=== PATIENT | male | born 1945 | race Caucasian/White ===

== ENCOUNTER 2017-02-09 20:23 | Emergency (ER) | payer MEDICARE, OTHER ==
[~2017-02-09] VITALS: Ht 172.7 cm; Wt 97.5 kg
[2017-02-09 20:26] VITALS: Ht 172.7 cm; Wt 97.5 kg
[2017-02-09] MEDS ORDERED: SODIUM CHLORIDE 0.9% 1L BAG IV* STA (22:28)
[2017-02-09] MEDS ORDERED: PIPER-TAZO 3.375 GM IV (PMX) 100 ML IVPB STA (22:28)
[2017-02-09] MEDS ORDERED: morphine 4 MG/ML VIAL IV STA (22:55)
[2017-02-09 23:13] LABS: ADD SCAN DIFF NO
[2017-02-09 23:18] LABS: ABNORMAL IP MESSAGE 1; HEMATOCRIT 39.8 % (42.0-52.0); HEMOGLOBIN 13.9 g/dl (14.0-18.0); MEAN CORPUSCULAR HEMOGLOBIN 30.4 pg (29.0-33.0); MEAN CORPUSCULAR HGB CONC 34.9 g/dl (32.0-37.0); MEAN CORPUSCULAR VOLUME 87.1 fl (82.0-101.0); MEAN PLATELET VOLUME 10.3 fl (7.4-10.4); PLATELET COUNT 120 10^3/UL (140-415); RED BLOOD COUNT 4.57 10^6/ul (4.70-6.10); WHITE BLOOD COUNT 2.4 10^3/ul (4.8-10.8)
[2017-02-09 23:36] LABS: INR 1.28; PROTIME 16.1 Sec (12.2-14.2); PT RATIO 1.3
[2017-02-09 23:37] LABS: ALBUMIN 4.5 g/dl (3.3-4.9); ALBUMIN/GLOBULIN RATIO 1.73; BILIRUBIN,INDIRECT 0.7 mg/dl (0-1.1); BILIRUBIN,TOTAL 0.7 mg/dl (0.2-1.3); CREATININE 1.22 mg/dl (0.61-1.24); PARTIAL THROMBOPLASTIN TIME 37.6 Sec (25.0-35.0); TOTAL PROTEIN 7.1 g/dl (6.1-8.1)
[2017-02-09] MEDS ORDERED: SIMV40TA2 PO (23:42)
[2017-02-09] MEDS ORDERED: IBUP200C PO (23:42)
[2017-02-09] MEDS ORDERED: LOSA1TAB9 PO (23:42)
[2017-02-09] MEDS ORDERED: NAPR220C2 PO (23:42)
[2017-02-09] MEDS ORDERED: SYN112 PO (23:42)
[2017-02-09] MEDS ORDERED: MULT-542 PO (23:42)
[2017-02-09] MEDS ORDERED: MTF1000T PO (23:42)
[2017-02-09 23:43] LABS: POTASSIUM 2.8 mmol/L (3.5-5.1)
[2017-02-09 23:48] LABS: TROPONIN-I 0.018 ng/ml (0.00-0.12)
[2017-02-10] MEDS ORDERED: POTASSIUM CHLORIDE (SR) 20 MEQ TAB PO STA
[2017-02-10] MEDS ORDERED: POTASSIUM CHLORIDE 10 MEQ in SOD CHLORIDE 0.9% 1,000 ML IV ONE ×2
[2017-02-10 00:50] LABS: LYMPHOCYTES # 0.2 10^3/ul (0.8-2.9); MONOCYTE # 0.4 10^3/ul (0.3-0.9); NEUTROPHIL # 0.4 10^3/ul (1.6-7.5); PLATELET ESTIMATE PLT APPEAR DECREASED; POLYCHROMASIA FEW; TEAR DROP CELLS FEW
--- NOTE | 2017-02-10 01:22 | RADRPT ---
PROCEDURE: XR Chest. CLINICAL INDICATION: Sepsis. TECHNIQUE: AP Portable chest. COMPARISON: No pertinent prior examinations were submitted for comparison. FINDINGS: There is mild cardiomegaly. The lungs are clear. The osseous structures are unremarkable. IMPRESSION: No acute findings. RPTAT: HIKT .Marco Jimenez MD, Date Time Electronically viewed and signed by .Marco Jimenez MD, on 02/10/2017 01:21 .T/
--- NOTE | 2017-02-10 01:34 | RADRPT ---
PROCEDURE: CT ABDOMEN/PELVIS WITHOUT CONTRAST CLINICAL INDICATION: 71-year-old male with abdominal pain and sepsis. The patient has a history o f trauma. TECHNIQUE: The study was performed utilizing a [employer] Power VCT 64-slice CT scanner. Direct axia l sections were obtained through the abdomen and pelvis without the use of intravenous contrast mate rial. Sagittal and coronal reformations were obtained. One or more of the following dose reduction t echniques were utilized: automated exposure control, adjustment of the mA and/or kV according to pat ient's size or use of iterative reconstruction technique. The [facility] CTD/vol = 21.4 mGy; Total Exam DLP = 1346.5 mGy-cm. COMPARISON: None. FINDINGS: There is minimal bibasilar subsegmental atelectasis. There is no evidence for significant pleural e ffusion. The liver has a normal size and contour. There is diffuse decreased density throughout th e liver consistent with fatty infiltration without focal areas of abnormal density. No intrahepatic nor extrahepatic biliary ductal dilatation is seen. The gallbladder demonstrates no wall thickening nor pericholecystic fluid. No biliary stones are evident. The pancreas is without areas of abnormal attenuation. The spleen is identified and has a normal size without abnormal density. The adrenal g lands are unremarkable. The kidneys are without abnormal density. No hydroureteronephrosis nor nephr oureterolithiasis is evident. The urinary bladder contains urine. There is no mild fluid identified throughout the small bowel and colon without obstruction suggestive of an enteritis. Multiple diver ticula seen within the redundant sigmoid colon without surrounding inflammatory changes. The appendix is visualized and is without abnormal thickening or surrounding inflammatory reaction. Note d is a small punctate distal appendicolith. There is no significant free fluid. The prostate is mild ly enlarged and heterogeneous measuring approximately 5.7 x 4.6 x 6.4 cm. The aortoiliac vessels ar e mildly calcified and ectatic but without aneurysmal dilatation. Degenerative changes are seen with in the spine. IMPRESSION: 1. Diffuse fatty infiltration of the liver. 2. No CT evidence for obstructive uropathy or renal calculi. 3. Fluid identified throughout the bowel without obstruction suggestive of an enteritis. 4. Sigmoid diverticulosis. 5. Mildly enlarged heterogeneous prostate. 6. Vascular calcifications. 7. Degenerative changes within the spine. .Mamadou Menon MD, MD Date Time Electronically viewed and signed by .Mamadou Menon MD, MD on 02/10/2017 01:34 .Santos/
[2017-02-10 02:00] VITALS: TEMP 99.8
--- NOTE | 2017-02-10 02:10 | RADRPT ---
PROCEDURE: Left rib x-rays CLINICAL INDICATION: Chest pain. TECHNIQUE: 4 view of the left ribs. COMPARISON: None available. FINDINGS: No displaced rib fracture is identified. There is no pneumothorax. The lungs are clear. The cardi ac silhouette is not enlarged. There is no pleural effusion. IMPRESSION: 1. No rib fracture is identified, although the presence of a nondisplaced rib fracture cannot be ex cluded. RPTAT: HTAR .Carlos Amado MD, MD Date Time Electronically viewed and signed by .Carlos Amado MD, MD on 02/10/2017 02:09 .R/
[2017-02-10] MEDS ORDERED: HYDROCODONE/APAP (5/325) TAB PO ONE (02:30)
[2017-02-10 04:23] LABS: CREATININE 0.97 mg/dl (0.61-1.24); POTASSIUM 3.1 mmol/L (3.5-5.1)
[2017-02-10] MEDS ORDERED: IBUP-1542 PO (05:13)
[2017-02-10] MEDS ORDERED: LOPE2CAP PO (05:13)
[2017-02-10] MEDS ORDERED: HYDR-906 PO (05:13)
--- NOTE | 2017-02-10 05:18 | ERD ---
ER Documentation Chief Complaint Date/Time DATE: 02/10/17 TIME: 05:15 Chief Complaint abd pain, diarrhea, vomiting left rib pain after a ground level fall today HPI 71-year-old male with a history of hypertension and diabetes presenting to the ER complaining of diarrhea for 3 days. He has associated lower abdominal pain without any nausea or vomiting. He was at a graduation [employer] several days ago and half of the attendees, about 16 people, had similar symptoms after the event. His whole family has diarrhea at this time. Today he felt very weak and while walking outside of the house carrying boxes, he tripped and fell onto his face and chest. He had no loss of consciousness. He complains of left- sided chest wall pain, sharp, nonradiating, worse with inspiration. He denies any loss of consciousness or any headache at this time. He has no nausea or vomiting secondary to the fall. He has noticed fevers and chills. He denies dysuria. ROS All systems reviewed and are negative except as per history of present illness. Medications Home Meds Active Scripts Hydrocodone/Acetaminophen ([place] 5-325 Tablet) 1 Each Tablet, 1 TAB PO Q6H Y for SEVERE PAIN LEVEL 7-10, #7 TAB Prov:TANYA SILVERIO MD 02/10/17 Ibuprofen* (Motrin*) 600 Mg Tab, 600 MG PO Q6H Y for PAIN AND OR ELEVATED TEMP, #30 TAB Prov:TANYA SILVERIO MD 02/10/17 Loperamide Hcl* (Imodium*) 2 Mg Capsule, 2 MG PO .AFTER EA LOOSE BM Y for DIARRHEA, #10 TAB Prov:TANYA SILVERIO MD 02/10/17 Reported Medications Multivitamin* (Daily Value*) 1 Each Tablet, 1 TAB PO DAILY, TAB 02/09/17 Naproxen* (Aleve*) 220 Mg Capsule, 440 MG PO PRN, #60 CAP 02/09/17 Ibuprofen* (Ibuprofen*) 200 Mg Capsule, 800 MG PO QID Y for PAIN, CAP 02/09/17 Levothyroxine Sodium* (Levothyroxine Sodium*) 112 Mcg Tablet, 112 MCG PO BEFORE BREAKFAST, #30 TAB 02/09/17 Metformin* (Glucophage*) 1,000 Mg Tablet, 1000 MG PO WITH BREAKFAST DINNE, #30 TAB 6/14/17 Simvastatin* (Zocor*) 40 Mg Tablet, 40 MG PO QHS, #30 TAB 02/09/17 Losartan/Hydrochlorothiazide (Hyzaar 100-12.5 Tablet) 1 Each Tablet, 1 EACH PO, TAB 02/09/17 Allergies Allergies: Coded Allergies: Penicillins (Unverified Allergy, Unknown, 02/09/17) Sulfa (Sulfonamide Antibiotics) (Unverified Allergy, Unknown, 02/09/17) PMhx/Soc History of Surgery: Yes (L leg, R arm- all due to breaks) Anesthesia Reaction: No Hx Neurological Disorder: No Hx Respiratory Disorders: No Hx Cardiac Disorders: Yes (HTN) Hx Psychiatric Problems: No Hx Miscellaneous Medical Probl: Yes (DM) Hx Alcohol Use: No Hx Substance Use: No Hx Tobacco Use: No Smoking Status: Never smoker FmHx Family History: No diabetes Physical Exam Vitals Vital Signs Date Time Temp Pulse Resp B/P Pulse Ox O2 Delivery O2 Flow Rate FiO2 02/10/17 06:03 99 19 134/71 95 Room Air 02/10/17 02:00 99.8 104 16 122/72 95 Room Air 02/10/17 00:27 105 18 126/89 95 Room Air 02/09/17 20:26 103.7 131 20 157/83 95 Physical Exam Const: Well-appearing, nontoxic, no apparent distress Head: No scalp hematomas, superficial facial abrasions overlying nasal bridge and middle of forehead, facial bone stable. Eyes: Normal Conjunctiva, PERRLA, EOMI ENT: Normal External Ears, Nose and Mouth.No epistaxis. Neck: Full range of motion. No C-spine tenderness. No meningismus. Resp: Clear to auscultation bilaterally, left-sided parasternal lower chest wall tenderness. No crepitus. Cardio: Tachycardic with regular rhythm, no murmurs Abd: Soft, tender to palpation mildly in the right lower quadrant, non distended. Normal bowel sounds Skin: No petechiae or rashes Back: No midline or flank tenderness Ext: No cyanosis, or edema Neur: Awake and alert and oriented 3, cranial nerves intact, strength and sensations intact in all 4 extremities, normal gait Psych: Normal Mood and Affect Result Diagram: 02/09/17 2300 02/10/17 0240 Results 24 hrs Laboratory Tests Test 02/09/17 23:00 02/09/17 23:02 02/10/17 00:33 02/10/17 02:40 White Blood Count 2.410^3/ul Red Blood Count 4.5710^6/ul Hemoglobin 13.9g/dl Hematocrit 39.8% Mean Corpuscular Volume 87.1fl Mean Corpuscular Hemoglobin 30.4pg Mean Corpuscular Hemoglobin Concent 34.9g/dl Red Cell Distribution Width 13.0% Platelet Count 00744^3/UL Mean Platelet Volume 10.3fl Neutrophils % 18.0% Band Neutrophils % 34.0% Lymphocytes % 9.0% Monocytes % 16.0% Eosinophils % % Metamyelocytes % 23.0% Neutrophils # 0.410^3/ul Lymphocytes # 0.210^3/ul Monocytes # 0.410^3/ul Eosinophils # 10^3/ul Metamyelocytes # 0.6 Platelet Estimate PLT APPEAR DECREASED Large Platelets MODERATE Giant Platelets RARE Polychromasia FEW Tear Drop Cells FEW Prothrombin Time 16.1Sec Prothrombin Time Ratio 1.3 INR International Normalized Ratio 1.28 Activated Partial Thromboplast Time 37.6Sec Sodium Level 135mmol/L 140mmol/L Potassium Level 2.8mmol/L 3.1mmol/L Chloride Level 100mmol/L 108mmol/L Carbon Dioxide Level 24mmol/L 24mmol/L Anion Gap 14 11 Blood Urea Nitrogen 22mg/dl 20mg/dl Creatinine 1.22mg/dl 0.97mg/dl Glucose Level 256mg/dl 191mg/dl Lactic Acid Level 1.5mmol/L 1.5mmol/L 1.4mmol/L Calcium Level 9.0mg/dl 8.0mg/dl Total Bilirubin 0.7mg/dl Direct Bilirubin 0.00mg/dl Indirect Bilirubin 0.7mg/dl Aspartate Amino Transf (AST/SGOT) 29IU/L Alanine Aminotransferase (ALT/SGPT) 47IU/L Alkaline Phosphatase 45IU/L Troponin I 0.018ng/ml Total Protein 7.1g/dl Albumin 4.5g/dl Globulin 2.60g/dl Albumin/Globulin Ratio 1.73 Bedside Glucose 276mg/dL Current Medications Medications (Trade) Dose Ordered Sig/Omer Route PRN Reason Start Time Stop Time Status Last Admin Dose Admin Sodium Chloride 3020 ml 3,020 ml BOLUS OVER 2 HOURS STAT IV* 02/09/17 22:28 02/09/17 22:30 DC 02/09/17 23:52 Piperacillin Sod/ Tazobactam Sod (Zosyn 3.375gm/ 100 ml (Pmx)) 100 ml @ 200 mls/hr ONCE STAT IVPB 02/09/17 22:28 02/09/17 22:57 DC 02/09/17 23:52 Morphine Sulfate (morphine) 4 mg ONCE STAT IV 02/09/17 22:55 02/09/17 22:56 DC 02/09/17 23:52 Potassium Chloride 40 meq 40 meq ONCE STAT PO 02/10/17 00:00 02/10/17 00:06 DC 02/10/17 01:29 Potassium Chloride/Sodium Chloride (KCl/NS) 1,005 ml @ 150 mls/hr Q6H42M ONCE IV 02/10/17 00:00 02/10/17 06:41 02/10/17 02:14 Acetaminophen/ Hydrocodone Bitart ([place] (5/325)) 1 tab ONCE ONCE PO 02/10/17 02:30 02/10/17 02:31 DC 02/10/17 02:24 Procedures/MDM EKG: Rate/Rhythm: Sinus tachycardia at 103 bpm with occasional PVCs QRS, ST, T-waves: Nonspecific ST abnormality, no changes consistent w/ acute ischemia Impression: No evidence of ischemia or arrhythmia CT abdomen and pelvis shows evidence of enteritis MDM Patient is presenting with significant diarrhea, concerning for gastroenteritis. I have a lower suspicion for an acute surgical abdomen. Upon presentation the patient was tachycardic and febrile, which improved with treatment. He was given 30 cc/kg of IV fluids and 40 mEq of potassium orally and 40 mEq of IV potassium in NS over 4 hours. X-rays did not show any significant intrathoracic abnormalities or evidence of rib fracture. He did require morphine for pain control. Patient symptoms have stabilized and he is stable for discharge and continued outpatient monitoring. I recommended he see his primary care doctor in 1-2 days for repeat potassium check. I have given him a prescription for [place] for his chest wall contusion, loperamide, and ibuprofen. Return precautions were discussed. Patient will be discharged when he finishes his IV fluids with potassium replacement. Critical Care Time: 40 minutes Treatments/Evaluations: Close monitoring and treatment of unstable vital signs, cardiorespiratory, and neurologic status, while maintaining tight balance of fluid, respiratory, and cardiac interventions. This time includes discussing the case with the patient and the patients family. This time does not include all procedures stated elsewhere in this record. This time also includes reviewing old records, labs and radiological studies. This time includes examining and re-examining the patient. Additionally, this time also includes arranging care with admitting and consulting physicians. Departure Diagnosis: Primary Impression: Diarrhea Diarrhea type: presumed infectious Qualified Code: A09 - Diarrhea of presumed infectious origin Additional Impressions: Enteritis Facial contusion Encounter type: initial encounter Qualified Code: S00.83XA - Facial contusion, initial encounter Fall Encounter type: initial encounter Qualified Code: W19.XXXA - Fall, initial encounter Chest wall contusion Encounter type: initial encounter Laterality: left Qualified Code: S20.212A - Chest wall contusion, left, initial encounter Dehydration Hypokalemia Condition: Stable Patient Instructions: Treating Diarrhea, Hypokalemia, Chest Wall Contusion, Facial Contusion, No Wakeup Additional Instructions: Return to the ER for any worsening symptoms. He will need to follow-up with your primary care doctor in 1-2 days to recheck your potassium. TANYA SILVERIO MD Feb 10, 2017 05:17
[2017-02-10 06:51] VITALS: BP 134/71; PULSE 59; RESP 18
[2017-02-10] MEDS ORDERED: HYDROCODONE/APAP (10/325) TAB PO ONE (09:30)
== END 2017-02-10 09:35 | disposition home or self-care (01) ==
LOC: E/R 20:23 → EEVIPCON 20:23 → E/R 02-10 09:35
DX: K52.9 Noninfective gastroenteritis and colitis, unspecified (principal); S00.83XA Contusion of other part of head, initial encounter; S20.212A Contusion of left front wall of thorax, initial encounter; E86.0 Dehydration; E87.6 Hypokalemia; I10 Essential (primary) hypertension; E11.9 Type 2 diabetes mellitus without complications; R50.9 Fever, unspecified; W18.39XA Other fall on same level, initial encounter; Y92.9 Unspecified place or not applicable; Z79.84 Long term (current) use of oral hypoglycemic drugs
CPT/HCPCS: 71010; 71100; 74176; 80048; 80053; 82962; 83605; 84484; 85025; 85610; 85730; 87040; 93005; J2270; J2543; J3480; J7030; 36415; 96374; 96375